=== PATIENT | male | born 1990 | race Caucasian/White ===

== ENCOUNTER 2016-08-25 03:36 | Emergency (ER) | payer BC ==
[2016-08-25 03:42] VITALS: TEMP 98.1
[2016-08-25] MEDS ORDERED: SKIN ADHESIVE (DERMABOND) 1 EACH TP ONE (04:21)
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
[2016-08-25 04:44] VITALS: RESP 16; O2SAT 99
[2016-08-25 04:45] VITALS: BP 130/78; PULSE 66
== END 2016-08-25 04:43 | disposition home or self-care (01) ==
PROC: 0HQ1XZZ Repair Face Skin, External Approach (ICD-10-PCS; principal; 2016-08-25)
DX: S01.81XA Laceration without foreign body of other part of head, initial encounter (principal); F10.129 Alcohol abuse with intoxication, unspecified; W01.198A Fall on same level from slipping, tripping and stumbling with subsequent striking against other object, initial encounter

== ENCOUNTER 2017-04-12 20:34 | Emergency (ER) | payer OTHER, BC ==
[2017-04-12 20:44] VITALS: RESP 16; TEMP 97.9
--- NOTE | 2017-04-12 22:30 | EDPHY ---
H & P Time Seen by Provider: 04/12/17 22:03 HPI/ROS: CHIEF COMPLAINT: Laceration left thumb HISTORY OF PRESENT ILLNESS: 27-year-old male presents to the emergency department with a laceration to his left thumb. The patient was at work and accidentally cut his left thumb on a soft approximately 2 hours prior to arrival. He denies any other trauma or injury. He is right-hand dominant. He was able to control the bleeding with firm direct pressure. Last tetanus shot was 2 years ago. ROS: Denies numbness or tingling in his fingers, retained foreign body. Denies injury to the other fingers. Past Medical/Surgical History: Negative Social History: Single and lives in [place] Smoking Status: Never smoked Physical Exam: On examination the patient has a 2 cm laceration to the dorsal aspect of his left thumb overlying proximal phalanx. There is no active bleeding noted. There is no signs of tendon injury noted. Full flexion and extension of his left thumb. The other fingers do not appear injured. No palpable bony tenderness. No rotational deformities noted. Strong radial pulse at the left wrist. Constitutional: Initial Vital Signs Temperature (C) 36.6 C 04/12/17 20:39 Heart Rate 77 04/12/17 20:39 Respiratory Rate 16 04/12/17 20:39 Blood Pressure 126/56 H 04/12/17 20:39 O2 Sat (%) 96 04/12/17 20:39 O2 Delivery Mode Room Air Allergies/Adverse Reactions: No Known Allergies Allergy (Verified 04/12/17 20:43) Home Medications: Medication Instructions Recorded Levothyroxine 08/25/16 MDM/Departure - MDM Procedures: Laceration repair. Verbal consent was obtained from the patient. The 2 cm laceration on the left thumb was anesthetized using 1% lidocaine with epinephrine. The wound was irrigated with saline, draped and explored to its base with a gloved finger. There were no deep structures involved. No tendon injury was identified. The wound was repaired with 5 0 Ethilon, 3 sutures. The wound repair was simple. The procedure was performed by myself. ED Course/Re-evaluation: 27-year-old male presents to the emergency department with laceration to his left thumb. The wound was repaired. See procedure note. - Depart Disposition: Home, Routine, Self-Care Clinical Impression: Laceration of left thumb Qualifiers: Encounter type: initial encounter Damage to nail status: without damage Foreign body presence: without foreign body Qualified Code(s): S61.012A - Laceration without foreign body of left thumb without damage to nail, initial encounter Condition: Good Instructions: Care For Your Stitches (ED), Laceration (ED), Acute Wounds (ED) Additional Instructions: Wound Care Follow-Up: Removal of sutures in 10 days. Suture removal is complimentary in uncomplicated cases. Infection or abnormal findings would require reevaluation by the MD. In that case, you may be billed. Return if he notices any signs or symptoms of infection such as redness, swelling, increased pain, fever, purulent drainage. Ibuprofen 600 mg every 8 hours as needed for pain. Referrals: [facility] Ref[facility]Restrictions [Outside] - As per Instructions
[2017-04-12 23:26] VITALS: BP 126/62; PULSE 75; O2SAT 97
== END 2017-04-12 23:26 | disposition home or self-care (01) ==
PROC: 0HQGXZZ Repair Left Hand Skin, External Approach (ICD-10-PCS; principal; 2017-04-12)
DX: S61.012A Laceration without foreign body of left thumb without damage to nail, initial encounter (principal); W45.8XXA Other foreign body or object entering through skin, initial encounter; Y92.69 Other specified industrial and construction area as the place of occurrence of the external cause; Y99.0 Civilian activity done for income or pay; Y93.89 Activity, other specified